=== PATIENT | female | born 1960 | race Caucasian/White ===

== ENCOUNTER 2019-04-22 13:59 | Outpatient (CLI) | payer MEDICARE, MEDICAID, SELFPAY ==
--- NOTE | ~2019-04-22 | MM_ITS ---
EXAMINATION: MM screening cher BI w abran HISTORY: Screening mammogram TECHNIQUE: Craniocaudal and mediolateral oblique 3-D tomosynthesis images were obtained and synthetic 2-D images were generated. CAD analysis was submitted and interpreted. COMPARISON: 04/28/2016 bilateral digital screening mammogram BREAST PARENCHYMAL COMPOSITION: The breasts are heterogeneously dense, which may obscure small masses ....... FINDINGS: There is no evidence of suspicious mass, calcification, or architectural distortion to sugg est malignancy in either breast. There has been no significant interval change. IMPRESSION: 1. No mammographic evidence of malignancy. 2. Recommend routine screening mammography in one year. BI-RADS Category 1: Negative Reviewed, dictated and finalized at location A. RN
== END 2019-04-22 14:00 | disposition home or self-care (01) ==
LOC: CHSIMG 14:03
PROVIDERS: PCP Nurse Practitioner Family; Visit Provider Nurse Practitioner Family
DX: Z12.31 Encounter for screening mammogram for malignant neoplasm of breast (principal)
CPT/HCPCS: 77063; 77067

== ENCOUNTER 2019-05-21 17:23 | Emergency (ER) | payer MEDICARE, MEDICAID, SELFPAY ==
--- NOTE | 2019-05-21 18:09 | ED.FEMALEGU ---
HPI - Female Genitourinary General Chief complaint: Urogenital-Female Stated complaint: trouble urinating/pain while urinating Time Seen by Provider: 05/21/19 17:24 Source: patient Mode of arrival: ambulatory Limitations: no limitations History of Present Illness HPI Narrative: 58-year-old woman comes in today complaining of pain with urination and passing clots in her urine since last evening. She states that she has had no difficulty urinating, abdominal pain, fever, nausea, vomiting or discharge. She states she was recently sexually active. MD elicited complaint: dysuria Onset (ago): day(s) (1) Location of symptoms: urethra Severity: moderate Female Urogenital Radiation: Non-Radiating Quality of pain: sharp and burning Consistency: intermittent Vaginal discharge: none Vaginal bleeding: none Urinary symptoms: Dysuria, Frequency and Hematuria Exacerbating factors: urination Relieving factors: none Treatment prior to arrival: none Sexual activity: Yes Possible : postmenopausal Related Data Home Medications Medication Instructions Recorded Confirmed cetirizine 10 mg PO PRN 05/21/19 05/21/19 diphenoxylate-atropine 1 tablet PO DAILY 05/21/19 05/21/19 hydroxyzine pamoate 25 mg PO PRN 05/21/19 05/21/19 melatonin 3 mg PO HS 05/21/19 05/21/19 mirtazapine 15 mg PO DAILY 05/21/19 05/21/19 sertraline 200 mg PO DAILY 05/21/19 05/21/19 Allergies Allergy/AdvReac Type Severity Reaction Status Date / Time aspirin AdvReac Abdominal Verified 05/21/19 18:10 Pain Review of Systems Constitutional: Constitutional: Denies chills and Denies fatigue Eyes: Eyes: Denies change in vision and Denies photophobia ENT: Denies dysphagia, Denies nasal congestion and Denies sore throat Cardiovascular: Cardiovascular: Denies chest pain and Denies radiating jaw, neck or arm pain Respiratory: Respiratory: Denies cough, Denies dyspnea and Denies wheezing Gastrointestinal: Gastrointestinal: Denies abdominal pain, Denies diarrhea, Denies nausea and Denies vomiting Genitourinary: Genitourinary: Reports hematuria, Reports nocturia, Reports dysuria, Denies flank pain and Denies urinary incontinence Musculoskeletal: Musculoskeletal: Denies back pain, Denies arthralgias and Denies joint swelling Integumentary/Breasts: Skin/Breast: Denies pruritus, Denies erythema and Denies rash Neurologic: Denies vertigo, Denies dizziness and Denies syncope Psychiatric: Psychiatric: Denies anxiety and Denies depression Endocrine: Endocrine: Denies polydipsia and Denies polyuria Hematologic/Lymphatic: Hematologic/Lymphatic: Denies easy bleeding and Denies easy bruising Allergic/Immunologic: Allergic/Immunologic: Denies lip swelling and Denies wheezing PMFSH Past Medical History Medical History (Updated 05/21/19 @ 19:02 by Jimi Desai MD) Chronic back pain Depression IBS (irritable bowel syndrome) Macular degeneration Tobacco dependence syndrome Surgical History Surgical History (Updated 05/21/19 @ 19:00 by Jimi Desai MD) H/O elbow surgery Right H/O foot surgery left Hx of hysterectomy Partial Social History Social History (Updated 05/21/19 @ 19:00 by Jimi Desai MD) Smoking packs per day: 1 Smoking cigarettes per day: 20.0 Years smoked: 40 Smoking pack-years: 40.00 Smoking status: Current every day smoker Tobacco type: cigarettes Alcohol intake: current Substance use: never Exam Const: General: healthy appearing, no acute distress and alert Orientation/consciousness: patient oriented x3 HENMT: Ears: TM's normal bilaterally and EAC's normal Mouth: Yes Normal oral and palatal mucosa present and Yes moist mucous membranes Throat: posterior oropharynx normal and uvula midline Eyes: Conjunctivae: conjunctivae normal Pupils: Equal, round and reactive pupils present EOM: EOMs intact bilaterally Resp: Effort & Inspection: normal respiratory effort and not labored Auscultatio
[2019-05-21 18:14] VITALS: BP 121/70; PULSE 92; RESP 14; TEMP 36.6; O2SAT 99
[2019-05-21 18:34] LABS: Appearance Urine Sl Cloudy (Clear); Bilirubin Urine 1+ (Negative); Blood Urine 3+ (Negative); Color Urine Yellow (Yellow); Glucose Urine UA Negative (Negative); Ketones Urine 1+ (Negative); Leukocyte Esterase Ur 1+ (Negative); Nitrate Urine Positive (Negative); Protein Urine 3+ (Negative); Specific Grav Ur >= 1.030 (1.010-1.020)
[2019-05-21 18:40] LABS: Add Urine Microscopic? NO
[2019-05-21 19:11] VITALS: RESP 12; O2SAT 100
== END 2019-05-21 19:11 | disposition home or self-care (01) ==
PROVIDERS: Emergency Provider Emergency Medicine
DX: N30.01 Acute cystitis with hematuria (principal); F17.200 Nicotine dependence, unspecified, uncomplicated
CPT/HCPCS: 81003; 87491; 87591; 99283; 99284; A9270

== ENCOUNTER 2019-08-20 11:23 | Outpatient (CLI) | payer MEDICARE, SELFPAY ==
[2019-08-20 12:36] LABS: Alanine Aminotransferase 18 U/L (14-59); Albumin Level 3.9 g/dL (3.4-5.0); Alkaline Phosphatase 63 U/L (46-116); Anion Gap 11.3 mmol/L (7-16); Aspartate Amino Transferase 16 U/L (15-37); Bilirubin,Total 0.4 mg/dL (0.00-1.00); Blood Urea Nitrogen 16 mg/dL (7-18); Calcium 9.8 mg/dL (8.5-10.1); Carbon Dioxide 31 mmol/L (21-32); Chloride 105 mmol/L (98-108); Estimated Glomerular Filt Rate > 60; Glucose 89 mg/dL (70-99); Osmolality Calculated 296 mOsm/kg (285-295); Potassium 4.3 mmol/L (3.5-5.1); Sodium 143 mmol/L (136-145); Total Protein 6.7 g/dL (6.4-8.2)
[2019-08-23 04:17] LABS: Hepatitis A Antibody IgM Nonreactive; Hepatitis B Core Antibody Nonreactive (Nonreactive); Hepatitis B Surface Antigen Nonreactive (Nonreactive); Hepatitis C Signal to Cutoff 0.01 ratio (<1.00); Hepatitis C Virus Antibody Nonreactive (Nonreactive)
== END 2019-08-20 11:24 | disposition home or self-care (01) ==
PROVIDERS: PCP Nurse Practitioner Family; Visit Provider Nurse Practitioner Family
DX: R63.6 Underweight (principal); Z00.00 Encounter for general adult medical examination without abnormal findings
CPT/HCPCS: 36415; 80053; 80074

== ENCOUNTER 2020-04-29 14:36 | Outpatient (CLI) | payer MEDICARE, MEDICAID, SELFPAY ==
--- NOTE | ~2020-04-29 | MM_ITS ---
EXAMINATION: MM screening cher BI w abran HISTORY: Screening TECHNIQUE: Craniocaudal and mediolateral oblique 3-D tomosynthesis images were obtained and synthetic 2-D images were generated. CAD analysis was submitted and interpreted. COMPARISON: Comparison to multiple prior studies sequentially, with oldest reviewed study dated 04/28. BREAST PARENCHYMAL COMPOSITION: The breasts are extremely dense, which lowers the sensitivity of mamm ography. FINDINGS: There is no evidence of suspicious mass, calcification, or architectural distortion to sugg est malignancy in either breast. There has been no suspicious interval change. IMPRESSION: 1. No mammographic evidence of malignancy. 2. Recommend routine screening mammography in one year. BI-RADS Category 1: Negative Reviewed, dictated and finalized at location A. ENERGY MECHANIC
== END 2020-04-29 14:37 | disposition home or self-care (01) ==
PROVIDERS: PCP Family Medicine; Visit Provider Family Medicine
DX: Z12.31 Encounter for screening mammogram for malignant neoplasm of breast (principal)
CPT/HCPCS: 77063; 77067

== ENCOUNTER 2020-12-22 15:36 | Outpatient (CLI) | payer MEDICARE, MEDICAID, SELFPAY ==
--- NOTE | 2020-12-22 15:39 | ECG_ITS ---
Measurements Intervals [place] Rate: 67 P: 72 NC: 145 QRS: 24 QRSD: 107 T: 70 QT: 371 QTc: 394 Interpretive Statements SINUS RHYTHM WITH SINUS ARRHYTHMIA INCOMPLETE RIGHT BUNDLE BRANCH BLOC DELAYED PRECORDIAL R/S TRANSITION BORDERLINE ECGK Electronically Signed On 12-22-2020 16:06:55 CDT by Diego Farooq D.O.
== END 2020-12-22 15:37 | disposition home or self-care (01) ==
PROVIDERS: PCP Nurse Practitioner Family; Visit Provider Nurse Practitioner Family
DX: R07.9 Chest pain, unspecified (principal)
CPT/HCPCS: 93005

== ENCOUNTER 2021-08-27 15:13 | Outpatient (CLI) | payer MEDICARE, MEDICAID, SELFPAY ==
--- NOTE | ~2021-08-27 | XR_ITS ---
EXAM: XR foot LT 2V, XR ankle LT 2V DATE: 08/27/2021 15:51 HISTORY: pain @ anterior/lateral portion of foot/ankle . COMPARISON: None available. FINDINGS: Decreased mineralization. No fracture or dislocation. No lytic or blastic lesion. Joint sp aces are maintained. No erosion or periosteal change. Ankle joint effusion. IMPRESSION: No acute osseous finding in the left foot or ankle. Osteopenia. Reviewed, dictated and finalized at location K. IMPRESSION: No acute osseous finding in the left foot or ankle. Osteopenia.
== END 2021-08-27 15:14 | disposition home or self-care (01) ==
LOC: CHSIMG 15:16
PROVIDERS: PCP Family Medicine; Visit Provider Nurse Practitioner Family
DX: M79.672 Pain in left foot (principal)
CPT/HCPCS: 73600; 73620

== ENCOUNTER 2022-05-17 10:00 | Outpatient (CLI) | payer MEDICARE, SELFPAY ==
[2022-05-17 10:27] LABS: Appearance Urine Clear (Clear); Bilirubin Urine Negative (Negative); Blood Urine 1+ (Negative); Color Urine Light Yellow (Yellow); Glucose Urine UA Negative (Negative); Ketones Urine Negative (Negative); Leukocyte Esterase Ur Negative LEU/UL (Negative); Nitrate Urine Negative (Negative); Protein Urine Negative (Negative); Urobilinogen Urine 0.2 mg/dL (0.2-1.0)
[2022-05-17 10:33] LABS: Add Urine Microscopic? YES; Bacteria Urine Trace /hpf; Squamous Epithelial Cell Urine Rare /hpf (Few); WBC Urine None seen /hpf (0-3)
== END 2022-05-17 10:01 | disposition home or self-care (01) ==
PROVIDERS: PCP Family Medicine; Visit Provider Family Medicine
DX: R35.0 Frequency of micturition (principal)
CPT/HCPCS: 81001

== ENCOUNTER 2024-01-04 07:10 | Outpatient (CLI) | payer MEDICARE, MEDICAID, SELFPAY ==
--- NOTE | ~2024-01-04 | CT_ITS ---
EXAMINATION: CT abdomen pelvis wo/w con DATE: 01/04/2024 09:06 INDICATION: Right flank pain. TECHNIQUE: Computed tomography (CT) of the abdomen and pelvis was performed without and with intraven ous contrast using a total of 130 mL Omnipaque-350 intravenous contrast with a double-bolus technique for simultaneous opacification of the renal parenchyma and renal collecting system. Automated exposu re control and iterative reconstruction technique were employed. The dose-length product was 377.64 m Gy-cm. COMPARISON: None FINDINGS: The visualized portions of the lung bases demonstrate mild emphysema. There is a 5 mm nodule in left lower lobe, likely benign. There is a 4 mm nodule in right lower lobe, likely benign. No pleural effu anna. The heart size is normal. No pericardial effusion. The liver and gallbladder are normal. Calcif ications in the spleen are consistent with old granulomatous disease. The pancreas and adrenal glands are normal. There are cysts in the kidneys measuring up to 2.3 cm on the left. There is no urolithia sis. The ureters are well opacified and are normal. The bladder is normal. There are no dilated loops of bowel. There are no pathologically enlarged lymph nodes. There is no free intraperitoneal fluid. There is mild lumbar spondylosis. IMPRESSION: 1. No etiology for the patient's symptoms. Reviewed, dictated and finalized at location A.
[2024-01-04 07:39] LABS: Estimated Glomerular Filt Rate > 60
== END 2024-01-04 07:11 | disposition home or self-care (01) ==
LOC: CHSIMG 07:14
PROVIDERS: PCP Family Medicine; Visit Provider Nurse Practitioner
DX: Z98.890 Other specified postprocedural states (principal)
CPT/HCPCS: 74178; Q9967

== ENCOUNTER 2024-03-07 16:23 | Emergency (ER) | payer MEDICARE, MEDICAID, SELFPAY ==
[2024-03-07 16:26] VITALS: BP 97/78; PULSE 85; RESP 18; TEMP 36.5; O2SAT 98
--- NOTE | 2024-03-07 16:41 | ED.UPPEXIN ---
HPI - Extremity Injury (Upper) General Chief Complaint: Extremity Injury, Upper Stated Complaint: wrist pain Time Seen by Provider: 03/07/24 16:34 Source: patient Mode of arrival: ambulatory Limitations: no limitations History of Present Illness HPI narrative: patient is 63-year-old female who presents with a contusion the medial aspect of her left wrist has good range of motion with some mild radiation into her fingers good brisk radial pulse on the left with some mild bruising and swelling. After she hit her wrist on the side of a trash can. complaint: injury to: left Onset (ago): hour(s) Other Extremity Injury: Left: wrist ( contusion) Other injuries: none Handedness: right Severity: mild Related Data Allergies Allergy/AdvReac Type Severity Reaction Status Date / Time estrogens, conjugated (From Allergy Severe swelling Verified 03/07/24 16:28 Premarin) aspirin Allergy Intermediate Unknown Verified 03/07/24 16:28 soap Allergy Mild unknown Verified 03/07/24 16:28 Review of Systems Review of Systems: All systems reviewed & are unremarkable except as noted in HPI and below PMFSH Past Medical History Medical History Left foot pain Osteoarthritis Ingrown fingernail Chest pain Mouth pain Tooth abscess H/O uterine prolapse Bladder prolapse Herpes genitalis Patient underweight Yeast infection Macular degeneration IBS (irritable bowel syndrome) Depression Chronic back pain Tobacco dependence syndrome Macular degeneration Tobacco dependence Depression Chronic back pain IBS (irritable bowel syndrome) Surgical History Surgical History History of lumpectomy of right breast H/O foot surgery left H/O elbow surgery Right Hx of hysterectomy Partial Hx of hysterectomy Partial Family History Family History Mother Hypertension Diabetes mellitus Osteoporosis Overactive bladder Alzheimer disease Other Family history of coronary artery disease Family history of malignant neoplasm Family history of type 2 diabetes mellitus Social History Social History Smoking packs per day: 1 Smoking cigarettes per day: 20.0 Years smoked: 40 Smoking pack-years: 40.00 Smoking status: Current every day smoker Tobacco type: cigarettes (Currently down to 6 per day. She is trying to quit) Alcohol intake: current Substance use: never Substance use type: does not use Living arrangements: alone Additional living arrangements comments: Lives in public housing Gender identity (if verbalized by the patient): Female Sexual Orientation (if Verbalized by the Patient): Straight or Heterosexual Spiritual care concerns: No Exam Const: General: healthy appearing Nutritional Appearance: well nourished Orientation/consciousness: patient oriented x3 Limitations: no limitations HENMT: Head: normal to inspection Eyes: Pupils: Equal, round and reactive pupils present Neck: Neck: normal visual inspection Chest: Chest palpation & inspection: normal inspection of the chest Resp: Effort & Inspection: normal respiratory effort Auscultation: clear to auscultation bilaterally Skin: Wounds: wounds noted Neuro: General: patient oriented x3, moves all extremities, no meningeal signs and no focal motor deficits Course Course Emergency Course: Patient received a dose of p.o. Tylenol 650mg ice was applied to affected area an Gurpreet wrap applied. Vital Signs Vital signs: Vital Signs Temperature 36.5 C 03/07/24 16:26 Pulse Rate 85 03/07/24 16:26 Respiratory Rate 18 03/07/24 16:26 Blood Pressure 97/78 L 03/07/24 16:26 Pulse Oximetry 98 03/07/24 16:26 Oxygen Delivery Room Air 03/07/24 16:26 Temperature 36.5 C 03/07/24 16:26 Pulse Rate 85 03/07/24 16:26 Respiratory Rate 18 03/07/24 16:26 Blood Pressure 97/78 L 03/07/24 16:26 Pulse Oximetry 98 03/07/24 16:26 Oxygen Delivery Room Air 03/07/24 16:26 Critical Care Time Critical Care Time Critical Care Time: No Discharge Plan Discharge Clinical Impression: Contusion Qualifiers: Encounter type: initial encounter Contusion area: wrist Laterality: left Qualified Code(s): S60.212A - Contusion of left wrist, initial encounter Patient Disposition: Home, Self-Care Condition: Stable Instructions: Antibiotic Form, Contusion in Adults (ED) Additional Instructions: advised to continue Gurpreet wrap can continue ice to affected area take Tylenol as needed follow-up primary if symptoms persist or worsen. Patient Language: Scottish Prescriptions: No Action oxycodone 5 mg tablet 5 mg PO Q8H PRN (Reason: pain) Qty: 20 0RF triamcinolone acetonide 0.5 % ointment 1 applic topical BID Qty: 15 0RF alendronate 35 mg tablet 35 mg PO WEEKLY Qty: 12 3RF Rx Instructions: 1 tablet once a week omeprazole 10 mg capsule,delayed release(/EC) See Rx Instructions .ROUTE .COMPLEX Qty: 90 1RF Dose Instruction: TAKE 1 CAPSULE BY MOUTH EVERY DAY Rx Instructions: TAKE 1 CAPSULE BY MOUTH EVERY DAY naproxen 250 mg tablet See Rx Instructions .ROUTE .COMPLEX Qty: 60 2RF Dose Instruction: TAKE 1 TABLET BY MOUTH TWICE A DAY NEEDED FOR PAIN Rx Instructions: TAKE 1 TABLET BY MOUTH TWICE A DAY NEEDED FOR PAIN Magic Mouthwash (Dr. Villareal) 120 mL suspension 5 ml PO Q4-6H PRN (Reason: mouth pain) Qty: 120 12RF Myrbetriq 50 mg tablet extended release 24 hr 50 mg PO DAILY Qty: 90 0RF Follow-up/Referrals: UNKNOWN,DOCTOR [Primary Care Provider] -
[2024-03-07] MEDS: ACETAMINOPHEN 325 MG TABLET 650 MG PO (16:45)
[2024-03-07 16:52] VITALS: BP 105/82; PULSE 85; RESP 18; TEMP 36.5; O2SAT 98
== END 2024-03-07 16:54 | disposition home or self-care (01) ==
LOC: CHSED 16:52
PROVIDERS: Emergency Provider Emergency Medicine; PCP Family Medicine
DX: S60.212A Contusion of left wrist, initial encounter (principal); W22.8XXA Striking against or struck by other objects, initial encounter; F17.210 Nicotine dependence, cigarettes, uncomplicated
CPT/HCPCS: 99282; A9270

== ENCOUNTER 2024-03-22 10:51 | Outpatient (CLI) | payer MEDICARE, SELFPAY ==
[2024-03-22 11:11] LABS: Basophils Absolute Auto 0.04 K/mm3 (0.00-0.10); Basophils Percent Auto 0.8 % (0.0-1.0); Hematocrit 42.4 % (35.0-42.0); Hemoglobin 13.7 g/dL (11.7-13.8); Immature Granulocyte Absolute 0.01 K/mm3 (0.00-0.00); Immature Granulocyte Percent A 0.2 % (0.0-0.0); Lymphocytes Absolute Auto 1.35 K/mm3 (1.10-4.50); Mean Corpuscular HGB Conc 32.3 g/dL (32-36); Mean Corpuscular Hemoglobin 28.8 pg (27.0-31.0); Mean Corpuscular Volume 89.1 fL (78.0-102.0); Mean Platelet Volume 9.9 fl (9.2-11.8); Monocytes Absolute Auto 0.44 K/mm3 (0.10-0.90); Monocytes Percent Auto 8.8 % (2.0-11.0); Neutrophils Absolute Auto 2.76 K/mm3 (1.70-7.20); Neutrophils Percent Auto 55.2 % (50.0-70.0); Platelet Count Result 376 K/mm3 (150-420); Red Blood Count 4.76 M/mm3 (4.20-5.40); Red Cell Distribution Width 13.2 % (11.6-14.4)
[2024-03-22 12:04] LABS: Alanine Aminotransferase 25 U/L (14-59); Albumin Level 4.1 g/dL (3.4-5.0); Alkaline Phosphatase 63 U/L (46-116); Anion Gap 4 mmol/L (4-12); Aspartate Amino Transferase 17 U/L (15-37); Bilirubin,Total 0.4 mg/dL (0.00-1.00); Blood Urea Nitrogen 15 mg/dL (7-18); Calcium 10.4 mg/dL (8.5-10.1); Carbon Dioxide 33 mmol/L (21-32); Chloride 105 mmol/L (98-108); Estimated Glomerular Filt Rate > 60; Ferritin 138 ng/mL (8-252); Glucose 95 mg/dL (70-99); Iron 89 ug/dL (50-170); Osmolality Calculated 294 mOsm/kg (285-295); Percent Iron Saturation 29 % (12-57); Potassium 4.7 mmol/L (3.5-5.1); Sodium 142 mmol/L (136-145); Total Protein 6.6 g/dL (6.4-8.2); Vitamin B12 570 pg/mL (193-986)
[2024-03-22 12:14] LABS: Folic Acid > 20.0 ng/mL (8.6->20)
[2024-03-22 12:51] LABS: Thyroid Stimulating Hormone Reflex 0.71 u/IU/mL (0.36-3.74)
== END 2024-03-22 10:52 | disposition home or self-care (01) ==
PROVIDERS: PCP Family Medicine; Visit Provider Family Medicine
DX: R63.6 Underweight (principal); D50.9 Iron deficiency anemia, unspecified; E53.8 Deficiency of other specified B group vitamins; D64.9 Anemia, unspecified; E03.9 Hypothyroidism, unspecified
CPT/HCPCS: 36415; 80053; 82607; 82728; 82746; 83540; 83550; 84443; 85025

== ENCOUNTER 2024-10-30 16:57 | Outpatient (NON) | payer MEDICARE, SELFPAY ==
--- OUTSIDE RECORDS SUMMARY | 2024-10-30 17:00 | XMS_ITS | Clinical Summary ---
Author Organization [facility] Address [address] [place] [address] Phone Care Team Providers Care Client Relation Specialist Name Role Phone Zaki Dawn MD Primary Care Provider [phone] Alphonso Damon APRN, TOP ICER Unavailable [phone] Fede Murray MD Unavailable Allergies Active Allergy Reactions Criticality Noted Date Comments Aspirin Other (see Comments) 11/20/2023 Medications Multiple Vitamins-Minera ls (PRESERVISION AREDS 2 PO) Take by mouth. Act ryan ipratropium (ATROVENT) 0.06 % Solution 2 SPRAY INTRANASALLY THREE TIMES A DAY ADMINISTER INTO EACH NOSTRIL 5 Active omeprazole (PriLOSEC) 40 MG CAPSULE DELAYED RELEASE Take 40 mg by mouth daily. 5 Active Mirabegron ER (Myrbetriq) 50 MG TABLET SR 24 HRIndications:O AB (overactive bladder) Take 50 mg by mouth daily. 90 Tablet 3 5 Active Immunizations Immunization Administration Dates Next Due Covid-19, Mrna, Lnp-s, Pf, 30 Mcg/0.3 Ml Dose (P fizer) 11/18/2020,10/23/2020 Social History Tobacco Use Types Packs/Day Years Used Date Smoking Tobacco: Every Day Cigarettes Smokeless Tobacco: Never Tobacco Cessation:Ready to Q uit: Not Asked; Counseling Given: Not Answered Alcohol Use Standard Drinks/Week Comments Not Currently 0 (1 standard drink = 0.6 oz pur e alcohol) Sexually Active Control Partners Comments Not Currently Comments No Sex and Gender Information Value Date Recorded Sex Assigned at Not on file Legal Sex Female 3:05 PM CDT Gender Identity Not on file Sexual Orientation Not on file Last Filed Vital Signs Vital Sign Reading Time Taken Comments Blood Pressure 97/53 06/10/2024 1:41 PM CDT Pulse 78 06/10/2024 1:41 PM CDT Temperature - - Respiratory Rate 20 06/10/2024 1:41 PM CDT Oxygen Saturation 97% 06/10/2024 1:41 PM CDT Inhaled Oxygen Concentration - - Weight 43.1 kg (95 lb) 06/10/2024 1:41 PM CDT Height 147.3 cm (4' 10) 06/10/2024 1:41 PM CDT Body Mass Index 19.86 06/10/2024 1:41 PM CDT Plan of Treatment Upcoming Encounters Date Type Department Care Team (Late st Contact Info) Description 06/10/2025 2:00 PM CDT Office Visit [facility] [address] [place] [address] Alphonso Damon, AUTOMOTIVE TIRE TESTING SUPERVISOR, TOP ICER [address] [place] [address] Health Maintenance Due Date Last Done Comments DEXA Bone Density 1960 Hepatitis C Virus (HCV) Screening 1960 Mammogram 1960 TdaP Immunization 1960 Pneumococcal Immunization (5 0+ years) (1 of 2 - PCV) 1977 Cologuard 06/30/2003 Colonoscopy 06/30/2003 Colorectal Cancer Screening 06/30/2003 Immunochemical Fecal Occult Blood 06/30/2003 Zoster Immunization (1 of 2) 2008 SARS-COV-2 Immunization ( - season) 2023 11/18/2020, 10/23/2020 Influenza Immunization (#1) 2024 Respiratory Syncytial Virus (RSV) Immunization (Adult) (1 - 1-dose 75+ series) 2033 Hepatitis B Immunization Aged Out No longer eligible based on patient's age to complete this topic Human Papillomavirus (HPV) Immunization Aged Out No longer eligible b ased on patient's age to complete this topic Meningococcal Immunization (ACWY) Aged Out No longer eligible b ased on patient's age to complete this topic Rotavirus Immunization Aged Out No lo nger eligible based on patient's age to complete this topic Insurance MEDICAID [place] MEDICARE C UNITEDHE[employer]ARE Care Teams Client Relation Specialist Relationship Specialty Start Date End Date Zaki Dawn MD [address] [place] [address] PCP - General Family Medicine 10/16/23 Alphonso Damon APRN, TOP ICER [address] [place] [address] Nurse Practitioner Advanced Practice Nurse 11/20/23 Fede Murray MD [address] [phone] Consulting Physician Urology 03/29/24
== END 2024-10-30 16:58 | disposition home or self-care (01) ==
LOC: CHSLAB 16:58
PROVIDERS: PCP Family Medicine; Visit Provider Nurse Practitioner Family
DX: R21 Rash and other nonspecific skin eruption (principal)
CPT/HCPCS: 87070; 87075; 87205

== ENCOUNTER 2024-12-20 11:33 | Outpatient (CLI) | payer MEDICARE, MEDICAID, SELFPAY ==
--- NOTE | ~2024-12-20 | XR_ITS ---
EXAMINATION: XR shoulder RT min 2V DATE: 12/20/2024 11:53 INDICATION: Fall. Right shoulder pain. TECHNIQUE: 5 images of the right shoulder were obtained. COMPARISON: None FINDINGS: Mild degenerative change in the right acromioclavicular joint. Bones appear osteopenic. Questionable anterior subluxation/dislocation of the right humeral head relative to the right glenohumeral joint. Consider an axillary view for further assessment. [ No radiographic evidence for an acute fracture.] [ No radiopaque foreign body.] [ No sclerotic bone lesions.] Soft tissue swelling about the right shoulder. IMPRESSION: 1. No fracture identified. 2. Questionable anterior subluxation/dislocation of the right humeral head relative to the right glenohumeral joint. Consider an axillary view for further assessment. If symptoms persist or worsen consider a short-term follow-up study or additional imaging for further assessment. Reviewed, dictated and finalized at location Q. IMPRESSION: 1. No fracture identified. 2. Questionable anterior subluxation/dislocation of the right humeral head rela tive to the right glenohumeral joint. Consider an axillary view for further ass essment. If symptoms persist or worsen consider a short-term follow-up study or addition al imaging for further assessment.
== END 2024-12-20 11:34 | disposition home or self-care (01) ==
PROVIDERS: PCP Family Medicine; Visit Provider Family Medicine
DX: S49.91XA Unspecified injury of right shoulder and upper arm, initial encounter (principal)
CPT/HCPCS: 73030

== ENCOUNTER 2024-12-23 11:47 | Outpatient (CLI) | payer MEDICARE, MEDICAID, SELFPAY ==
--- OUTSIDE RECORDS SUMMARY | 2024-04-18 08:00 | XMS_ITS ---
Author Organization [facility] Address [address] [place], [place] [id number] Care Team Providers Care Sewing Trimmer Name Role Phone KATIUSKA SIERRA Unavailable [phone] Zaki Dawn Unavailable Unavailable SOCORRO PARMAR Unavailable [phone] Allergies Allergen (clinical drug ingredient) Drug/Non Drug Allergy documented on EMR Reaction Allergy Type Onset Date Status aspirin Aspirin Unknown Drug Allergy Active REASON FOR VISIT When the patient was very young (2nd or 3rd grade) she stepped on a wood foreign body and over timeit became infected. She recently has been developing hard skin on the bottom of the heel that hurtsto walk on., The patient has painful calluses that are causing difficulty with ambulation and shoegear. The onset is gradual Encounters Encounter Location Date Provider Diagnosis [address] [id number] 04/18/2024 SOCORRO PARMAR Acquired keratosis [keratoderma] palmaris et plantaris L85.1 ; Atherosclerosis of [place] arteries of extremities with intermittent claudication, bilateral legs I70.213 ; Pain in left foot M79.672 and Other eccrine sweat disorders L74.8 Assessments Encounter Date Diagnosis (ICD Code) Assessment Notes Treatment Notes Treatment Clinical Notes Section Notes 04/18/2024 Acquired keratosis [keratoderma] palmaris et plantaris (ICD-10 - L85.1) A total of 3 corns or calluses to the left heel, as described in the note above, were cut and pared utilizing a #15 blade. Emollient: Recommend that the patient use an emollient such as [id number] Eucerin cream, Vanicream, or other lotion to the affected area. 04/18/2024 Atherosclerosis of [place] arteries of extremities with intermittent claudication, bilateral legs (ICD-10 - I70.213) 04/18/2024 Pain in left foot (ICD-10 - M79.672) 04/18/2024 Other eccrine sweat disorders (ICD-10 - L74.8) Porokeratosis Resolved: The nonviable tissue was sharply debrided down to normal healthy appearing skin. No evidence of porokeratosis noted. Patient advised to monitor this area, as well as to use emollients and keep pressure off this area with padding, inserts, or orthotics. 04/18/2024 Other Plan Of Treatment Treatment Notes Assessment Notes Acquired keratosis [keratode rma] palmaris et plantaris A total of 3 corns or calluses to the left heel, as described in the note above, were cut and pared utilizing a #15 blade. Emollient: Recommend that the patient use an emollient such as [id number]-hudueje Eucerin cream, Vanicream, or other lotion to the affected area. Other eccrine sweat disorders Porokeratosis Resolved: The nonviable tissue was sharply debrided down to normal healthy appearing skin. No evidence of porokeratosis noted. Patient advised to monitor this area, as well as to use emollients and keep pressure off this area with padding, inserts, or orthotics. Next Appt Details Follow Up: 10 - 12 weeks, Re ason: At-Risk Foot care, sooner if problems develop. Progress Notes * Crystal GARCIA SDOB:1960 (64 yo F)Acc No.[id number]:04/18/2024 Progress Notes Patient: Crystal HUANG S Provider: Brennen Parmar DPM :1960 A ge:63 Y S ex:Female Date:04/18/2024 Address:[address] [place], [place] [id number] Subjective: * Chief Complaints: * 1 . When the patient was very young (2nd or 3rd grade) she stepped on a wood foreign body and over time it became infected. She recently has been developing hard skin on the bottom of the heel that hurts to walk on.. 2. The patient has painful calluses that are causing difficulty with ambulation and shoegear. The onset is gradual. * HPI: H PI: New Complaint P maribel presents for a new patient consultation., Patient complains of an issue to a possible porokeratosis spot on the left heel. Patient states that she thinks it is a knot. Duration of problem is 2 years. , MA: [facility]. * ROS: G eneral / Constitutional: Patient denies c hills, fever, weight loss. ? M usculoskeletal: Patient denies w eakness, broken foot bone. ? S kin: Patient complains of c alluses and corns. N eurologic: Patient denies b alance difficulty, confusion, difficulty speaking, dizziness. * Medical History: B ladder infections. * Social History: S moking . * Medications: N one * Allergies: A spirin: Allergy. Objective: * Vitals: * Examination: P hysical Examination: General appearance: A lert, pleasant, well-nourished and in no acute distress. D ermatologic: Skin findings: S kin is thin, atrophic and lacking pedal hair. Hypertrophic / hyperkeratotic lesion: h yperkeratotic skin to the plantar aspect of the left heel with nucleated cores. Post debridement, relief was noted. V ascular: Dorsalis pedis pulse: 1 /4 b ilateral. Posterior tibial pulse: 0 /4 bilateral. Capillary refill: g reater than 3 seconds. Edema: N o edema bilateral. N eurologic: Gross sensation G rossly intact to light touch. There is negative Tinel's sign. M usculoskeletal: Muscle Strength M uscle strength is 5/5 in regards to dorsiflexion, plantarflexion, inversion, and eversion in bilateral lower extremities. ? Assessment: * Assessment: 1. A cquired keratosis [keratoderma] palmaris et plantaris - L85.1 (Primary) 2 . A therosclerosis of [place] arteries of extremities with intermittent claudication, bilateral legs - I70.213 3 . P ain in left foot - M79.672 4 . O ther eccrine sweat disorders - L74.8 Plan: * Treatment: 2. O ther eccrine sweat disorders Notes: Porokeratosis Resolved: The nonviable tissue was sharply debrided down to normal healthy appearing skin. No evidence of porokeratosis noted. Patient advised to monitor this area, as well as to use emollients and keep pressure off this area with padding, inserts, or orthotics. * Follow Up: 1 0 - 12 weeks (Reason: At-Risk Foot care, sooner if problems develop.) * Billing Information: * Visit Code: 39508 Office Visit, New Pt., Level 3. * Procedure Codes: * Electronic signature of SOCORRO PARMAR DPM on 12/23/2024 at 01:04 PM CDT Sign off status: Pending * Provider: Brennen Parmar DPM Date: 0 04/18/2024 Generated for Dung fall/Kajal/Teodoro on: 1 01:04 PM CDT History and Physical Notes * HPI (History of Present Illness) Category Sub-Category Detail Notes Category Not es HPI New Complaint Patient presents for a new patient consultation., Patient complains of an issue to a possible porokeratosis spot on the left heel. Patient states that she thinks it is a knot. Duration of problem is 2 years. , MA: [facility] Examination Category Sub-Category Detail Notes Category Not es Dermatologic Skin findings: Skin is thin, at rophic and lacking pedal hair Hypertrophic / hyperkeratotic lesion: hy perkeratotic skin to the plantar aspect of the left heel with nucleated cores. Post debridement, relief was noted Neurologic Gross sensation Grossly intact t o light touch. There is negative Tinel's sign Vascular Dorsalis pedis pulse: 1/4 bilateral Edema: No edema bilateral Capillary refill: greater than 3 secon ds Posterior tibial pulse: 0/4 bilateral Physical Examination General appearance: Alert, pleasant, well-nourished and in no acute distress Musculoskeletal Muscle Strength Muscle strength is 5/5 in regards to dorsiflexion, plantarflexion, inversion, and eversion in bilateral lower extremities
--- OUTSIDE RECORDS SUMMARY | 2024-07-11 08:20 | XMS_ITS ---
Author Organization [facility] Address [address] [place], [place] [address] Care Team Providers Care Solar Installation Technician Name Role Phone KATIUSKA SIERRA Unavailable [phone] Zaki Dawn Unavailable Unavailable SOCORRO DE LA GARZA Unavailable [phone] Allergies Allergen (clinical drug ingredient) Drug/Non Drug Allergy documented on EMR Reaction Allergy Type Onset Date Status aspirin Aspirin Unknown Drug Allergy Active REASON FOR VISIT Patient presents for at-risk foot care . The patient has painful toenails and calluses that are causing difficulty with ambulation and shoegear. The onset is gradual Encounters Encounter Location Date Provider Diagnosis [address] [id number] 07/11/2024 SOCORRO DE LA GARZA Tinea unguium B35.1 ; Acquired keratosis [keratoderma] palmaris et plantaris L85.1 ; Atherosclerosis of [place] arteries of extremities with intermittent claudication, bilateral legs I70.213 ; Pain in right foot M79.671 and Pain in left foot M79.672 Assessments Encounter Date Diagnosis (ICD Code) Assessment Notes Treatment Notes Treatment Clinical Notes Section Notes 07/11/2024 Tinea unguium (ICD-10 - B35.1) Nails 1-5 Bilateral were debrided extensively with nail nippers and emery board, reducing length and girth to pink healthy tissue with any subungual debris and necrotic tissue removed 07/11/2024 Acquired keratosis [keratoderma] palmaris et plantaris (ICD-10 - L85.1) A total of 1 corns or calluses, as described in the note above, were cut and pared utilizing a #15 blade 07/11/2024 Atherosclerosis of [place] arteries of extremities with intermittent claudication, bilateral legs (ICD-10 - I70.213) 07/11/2024 Pain in right foot (ICD-10 - M79.671) 07/11/2024 Pain in left foot (ICD-10 - M79.672) Plan Of Treatment Treatment Notes Assessment Notes Tinea unguium Nails 1-5 Bilateral were debrided extensively with nail nippers and emery board, reducing length and girth to pink healthy tissue with any subungual debris and necrotic tissue removed Acquired keratosis [keratode rma] palmaris et plantaris A total of 1 corns or calluses, as described in the note above, were cut and pared utilizing a #15 blade Next Appt Details Follow Up: 10 - 12 weeks, Re ason: At-Risk Foot care, sooner if problems develop. Progress Notes * ANDRZEJHermesCrystal SDOB:1960 (64 yo F)Acc No.[id number]:07/11/2024 Patient: Crystal HUANG Provider: Brennen De La Garza DPM :1960 A ge:64 Y S ex:Female Date:07/11/2024 Address:[address] [place], [place] [id number] Subjective: * Chief Complaints: * 1 . Patient presents for at-risk foot care . The patient has painful toenails and calluses that are causing difficulty with ambulation and shoegear. The onset is gradual. * HPI: H PI: New Complaint E stablished patient presents with a new complaint. Patient complains of an issue to a few nails that she was unable to cut. Patient states a few of her nails are growing into the sides of her skin. Patient denies any pain. Patient states she has been applying cream that the doctor recommended, but she is unsure if it is making any difference. RYDER LB. * ROS: G eneral / Constitutional: Patient denies c hills, fever, weight loss. ? M usculoskeletal: Patient denies w eakness, broken foot bone. ? S kin: Patient complains of c alluses and corns. N eurologic: Patient denies b alance difficulty, confusion, difficulty speaking, dizziness. * Medical History: B ladder infections. * Family History: N o Family History documented.. * Social History: S moking . * Medications: N one * Allergies: A spirin: Allergy. Objective: * Vitals: * Examination: P hysical Examination: General appearance: A lert, pleasant, well-nourished and in no acute distress. D ermatologic: Skin findings: S kin is thin, atrophic and lacking pedal hair. Hypertrophic / hyperkeratotic lesion: p lantar aspect left heel. Nail pathology: N ails 1, 2, 3, 4, and 5 bilateral are elongated, thick, discolored, and dystrophic with subungual debris. They are painful to palpation. ? V ascular: Dorsalis pedis pulse: 1 /4 [...] lower extremities. ? Assessment: * Assessment: 1. T inea unguium - B35.1 (Primary) 2 . A cquired keratosis [keratoderma] palmaris et plantaris - L85.1 3 . A therosclerosis of [place] arteries of extremities with intermittent claudication, bilateral legs - I70.213 4 . P ain in right foot - M79.671 5 . P ain in left foot - M79.672 Plan: * Treatment: 2. A cquired keratosis [keratoderma] palmaris et plantaris Notes: A total of 1 corns or calluses, as described in the note above, were cut and pared utilizing a #15 blade * Immunizations: Immunization record has been reviewed and updated. * Preventive Medicine: Screenings: F all risk screening F all Risk Assessment: N o falls in the past year. * Follow Up: 1 0 - 12 weeks (Reason: At-Risk Foot care, sooner if problems develop.) * Billing Information: * Visit Code: 27502 Office Visit, Est Pt., Level 3. * Procedure Codes: * Electronic signature of SOCORRO DE LA GARZA DPM on 12/23/2024 at 01:05 PM CDT Sign off status: Pending * Provider: Brennen De La Garza DPM Date: 0 07/11/2024 Generated for Dung fall/Kajal/Teodoro on: 1 01:05 PM CDT History and Physical Notes * HPI (History of Present Illness) Category Sub-Category Detail Notes Category Not es HPI New Complaint Established camelia ent presents with a new complaint. Patient complains of an issue to a few nails that she was unable to cut. Patient states a few of her nails are growing into the sides of her skin. Patient denies any pain. Patient states she has been applying cream that the doctor recommended, but she is unsure if it is making any difference. MA LB Examination Category Sub-Category Detail Notes Category Not es Dermatologic Skin findings: Skin is thin, at rophic and lacking pedal hair Nail pathology: Nails 1, 2, 3, 4, an d 5 bilateral are elongated, thick, discolored, and dystrophic with subungual debris. They are painful to palpation Hypertrophic / hyperkeratotic lesion: pl adrienne aspect left heel Neurologic Gross sensation Grossly intact t o [...]
--- OUTSIDE RECORDS SUMMARY | 2024-09-12 08:50 | XMS_ITS ---
Author Organization [facility] Address [address] [place], [place] [address] Care Team Providers Care Pets Salesperson Name Role Phone RIGO KATIUSKA Unavailable [phone] Zaki Dawn Unavailable Unavailable REASON FOR VISIT *General care Encounters Encounter Location Date Provider Diagnosis [facility] [address] [place], [place] [id number] 09/12/2024 KATIUSKA SIERRA Tinea unguium B35.1 ; Acquired keratosis [keratoderma] palmaris et plantaris L85.1 ; Atherosclerosis of [place] arteries of extremities with intermittent claudication, bilateral legs I70.213 ; Pain in right foot M79.671 and Pain in left foot M79.672 Assessments Encounter Date Diagnosis (ICD Code) Assessment Notes Treatment Notes Treatment Clinical Notes Section Notes 09/12/2024 Tinea unguium (ICD-10 - B35.1) Nails 1-5 Bilateral were debrided extensively with nail nippers and emery board, reducing length and girth to pink healthy tissue with any subungual debris and necrotic tissue removed 09/12/2024 Acquired keratosis [keratoderma] palmaris et plantaris (ICD-10 - L85.1) A total of 2 corns or calluses, as described in the note above, were cut and pared utilizing a #15 blade 09/12/2024 Atherosclerosis of [place] arteries of extremities with intermittent claudication, bilateral legs (ICD-10 - I70.213) Patient educated on risks and aggravating factors of PVD, including conservative treatment options such as a diet and exercise regimen to aid in slowing progression of vascular disease. Check and protect LE bilateral daily. Call if any changes or concerns. 09/12/2024 Pain in right foot (ICD-10 - M79.671) 09/12/2024 Pain in left foot (ICD-10 - M79.672) Plan Of Treatment Treatment Notes Assessment Notes Tinea unguium Nails 1-5 Bilateral were debrided extensively with nail nippers and emery board, reducing length and girth to pink healthy tissue with any subungual debris and necrotic tissue removed Acquired keratosis [keratode rma] palmaris et plantaris A total of 2 corns or calluses, as described in the note above, were cut and pared utilizing a #15 blade Atherosclerosis of [place] ar teries of extremities with intermittent claudication, bilateral legs Patient educated on risks and aggravatin g factors of PVD, including conservative treatment options such as a diet and exercise regimen to aid in slowing progression of vascular disease. Check and protect LE bilateral daily. Call if any changes or concerns. Next Appt Details Follow Up: 10 - 12 weeks, Re ason: At-Risk Foot care, sooner if problems develop. Progress Notes * Crystal GARCIA SDOB:1960 (64 yo F)Acc No.[id number]:09/12/2024 Patient: Crystal HUANG S Provider: Sophia SIERRA :1960 A ge:64 Y S ex:Female Date:09/12/2024 Address:[address] [place], [place] [id number] Subjective: * Chief Complaints: * 1 . *General care. * ROS: G eneral / Constitutional: Patient denies c hills, fever, weight loss. ? M usculoskeletal: Patient denies w eakness, broken foot bone. ? S kin: Patient complains of c alluses and corns, nail changes.? N eurologic: Patient denies b alance difficulty, confusion, difficulty speaking, dizziness. * Medical History: Objective: * Vitals: * Examination: P hysical Examination: General appearance: A lert, pleasant, well-nourished and in no acute distress. D ermatologic: Skin findings: S kin is thin, atrophic and lacking pedal hair. Hypertrophic / hyperkeratotic lesion: p lantar aspect left heel, distal 1st digits bilateral. Nail pathology: N ails 1, 2, 3, [...] - L85.1 3 . A therosclerosis of [place] arteries of extremities with intermittent claudication, bilateral legs - I70.213 4 . P ain in right foot - M79.671 5 . P ain in left foot - M79.672 Plan: * Treatment: 2. A cquired keratosis [keratoderma] palmaris et plantaris Notes: A total of 2 corns or calluses, as described in the note above, were cut and pared utilizing a #15 blade 3. A therosclerosis of [place] arteries of extremities with intermittent claudication, bilateral legs Notes: Patient educated on risks and aggravating factors of PVD, including conservative treatment options such as a diet and exercise regimen to aid in slowing progression of vascular disease. Check and protect LE bilateral daily. Call if any changes or concerns. * Follow Up: 1 0 - 12 weeks (Reason: At-Risk Foot care, sooner if problems develop.) * Billing Information: * Visit Code: * Procedure Codes: * Electronic signature of NEIL SIERRA DPM on 12/23/2024 at 01:05 PM CDT Sign off status: Pending * Provider: Sophia SIERRA Date: 0 09/12/2024 Generated for Dung fall/Kajal/Teodoro on: 01:05 PM CDT History and Physical Notes * Examination Category Sub-Category Detail Notes Category Not es Dermatologic Skin findings: Skin is thin, at rophic and lacking pedal hair Nail pathology: Nails 1, 2, 3, 4, an d 5 bilateral are elongated, thick, discolored, and dystrophic with subungual debris. They are painful to palpation Hypertrophic / hyperkeratotic lesion: pl adrienne aspect left heel, distal 1st digits bilateral Neurologic Gross sensation Grossly intact t o [...]
--- NOTE | ~2024-12-23 | XR_ITS ---
EXAMINATION: XR elbow RT min 3V, 12/23/2024 12:00 CDT HISTORY: W19.XXXA - Unspecified fall, initial encounter COMPARISON: No comparisons available. Findings: No acute fracture or malalignment. No significant degenerative changes. Soft tissues unremarkable. Impression: No acute fracture or malalignment. Reviewed, dictated and finalized at location P. Impression: No acute fracture or malalignment.
--- NOTE | ~2024-12-23 | XR_ITS ---
EXAMINATION: XR shoulder RT 1V, 12/23/2024 12:00 CDT HISTORY: W19.XXXA - Unspecified fall, initial encounter COMPARISON: No comparisons available. Findings: No acute fracture or malalignment. No significant degenerative changes. Soft tissues unremarkable. Impression: No acute fracture or malalignment. Reviewed, dictated and finalized at location P. Impression: No acute fracture or malalignment.
--- OUTSIDE RECORDS SUMMARY | 2024-12-23 13:04 | XMS_ITS | Patient Health Record ---
Author Organization [facility] Address [address] [place], [place] [address] Care Team Providers Care Lead Developer Name Role Phone SIERRAKATIUSKA FELIX Unavailable [phone] Zaki Dawn Unavailable Unavailable SNSOCORRO PURCELL Unavailable [phone] Allergies Allergen (clinical drug ingredient) Drug/Non Drug Allergy documented on EMR Reaction Allergy Type Onset Date Status aspirin Aspirin Unknown Drug Allergy Active Reason For Referral No Information Encounters Encounter Location Date Provider Diagnosis [address] [id number] 04/18/2024 SOCORRO SNOOK Acquired keratosis [keratoderma] palmaris et plantaris L85.1 ; Atherosclerosis of [place] arteries of extremities with intermittent claudication, bilateral legs I70.213 ; Pain in left foot M79.672 and Other eccrine sweat disorders 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.[address] [id number] 07/11/2024 SOCORRO SNOOK Tinea unguium B35.1 ; Acquired keratosis [keratoderma] palmaris et plantaris L85.1 ; Atherosclerosis of [place] arteries of extremities with intermittent claudication, bilateral legs I70.213 ; Pain in right foot M79.671 and Pain in left foot M79.672 Assessments Encounter Date Diagnosis (ICD Code) Assessment Notes Treatment Notes Treatment Clinical Notes Section Notes 04/18/2024 Atherosclerosis of [place] arteries of extremities with intermittent claudication, bilateral legs (ICD-10 - I70.213) 04/18/2024 Acquired keratosis [keratoderma] palmaris et plantaris (ICD-10 - L85.1) A total of 3 corns or calluses to the left heel, as described in the note above, were cut and pared utilizing a #15 blade. Emollient: Recommend that the patient use an emollient such as [id number] Eucerin cream, Vanicream, or other lotion to the affected area. 07/11/2024 Tinea unguium (ICD-10 - B35.1) Nails [...] utilizing a #15 blade 07/11/2024 Atherosclerosis of [place] arteries of extremities with intermittent claudication, bilateral [...] this area with padding, inserts, or orthotics. 07/11/2024 Pain in right foot (ICD-10 - M79.671) 07/11/2024 Pain in left foot (ICD-10 - M79.672) 04/18/2024 Other Plan Of Treatment No Information Insurance Providers Payer Name Payer Address Payer Phone Subscriber Number Group Number Insured Name Patient Relationship to Insured Coverage Start Date Coverage End Date [facility] [address] [address] [place], [place] [id number] Crystal Garcia Self - patient is the insured Medical (General) History Medical History History ICD Code Bladder infections
--- OUTSIDE RECORDS SUMMARY | 2024-12-23 13:04 | XMS_ITS | Clinical Summary ---
Author Organization [facility] Address [address] [place] [address] Phone Care Team Providers Care Performance Makeup Artist Name Role Phone Zaki Dawn MD Primary Care Provider [phone] Alphonso Damon APRN, BATTERY ASSEMBLER Unavailable [phone] Fede Murray MD Unavailable Allergies Active Allergy [...] Description 06/10/2025 2:00 PM CDT Office Visit [facility] [address] [place] [address] Alphonso Damon, STEEL ERECTOR APPRENTICE, BATTERY ASSEMBLER [address] [place] [address] Health Maintenance Due Date Last Done Comments DEXA Bone Density 1960 Hepatitis C Virus (HCV) Screening 1960 Mammogram 1960 TdaP Immunization 1960 Pneumococcal Immunization (5 0+ years) (1 of 2 - PCV) 1977 Cologuard 06/30/2003 Colonoscopy 06/30/2003 Colorectal Cancer Screening 06/30/2003 Immunochemical Fecal Occult Blood 06/30/2003 Zoster Immunization (1 of 2) 2008 Medicare Initial AWV [id number] 03/13/2024 Influenza Immunization (#1) 2024 SARS-COV-2 Immunization (3 - 2024- season) 2024 11/18/2020, 10/23/2020 Respiratory Syncytial Virus (RSV) Immunization (Adult) (1 [...] MEDICAID [place] MEDICARE C UNITEDHEALTH[employer] Care Teams Performance Makeup Artist Relationship Specialty Start Date End Date Zaki Dawn MD [address] [place] [id number] PCP - General Family Medicine 10/16/23 Alphonso Damon, STEEL ERECTOR APPRENTICE, BATTERY ASSEMBLER [address] [place] [address] Nurse Practitioner Advanced Practice Nurse 11/20/23 Fede Murray MD [address] [phone] Consulting Physician Urology 03/29/24
== END 2024-12-23 11:48 | disposition home or self-care (01) ==
LOC: CHSIMG 11:48
PROVIDERS: PCP Family Medicine; Visit Provider Family Medicine
DX: S49.91XA Unspecified injury of right shoulder and upper arm, initial encounter (principal)
CPT/HCPCS: 73020; 73080

== ENCOUNTER 2025-02-05 10:15 | Outpatient (CLI) | payer MEDICARE, MEDICAID, SELFPAY ==
--- NOTE | ~2025-02-05 | XR_ITS ---
XR shoulder RT min 2V 02/05/2025 10:39 Indication: Right shoulder pain Procedure: 5 views right shoulder Comparison: No prior studies for comparison. Findings: Osteopenia. No fracture, subluxation or dislocation. No soft tissue abnormality. No foreign bodies. Impression: 1: No acute bone or joint abnormality. 2: Osteopenia. Reviewed, dictated and finalized at location O. ICAL SCIENCES PROFESSOR Impression: 1: No acute bone or joint abnormality. 2: Osteopenia.
--- OUTSIDE RECORDS SUMMARY | 2025-02-05 10:58 | XMS_ITS | Clinical Summary ---
Author Organization [facility] Address [address] [place] [address] Phone Care Team Providers Care Cloth Shrinking Supervisor Name Role Phone Zaki Dawn MD Primary Care Provider [phone] Alphonso Damon APRN, [place] FLOOR INSTALLATION HELPER Unavailable [phone] Fede Murray MD Unavailable Allergies Active Allergy [...] Description 06/10/2025 2:00 PM CDT Office Visit [facility] [address] [place] [address] Alphonso Damon, SURGERY AID, [place] FLOOR INSTALLATION HELPER [address] [place] [address] Health Maintenance Due Date Last Done Comments [...] MEDICAID [place] MEDICARE C UNITED[employer] Care Teams Cloth Shrinking Supervisor Relationship Specialty Start Date End Date Zaki Dawn MD [address] [place] [id number] PCP - General Family Medicine 10/16/23 Alphonso Damon, SURGERY AID, [place] FLOOR INSTALLATION HELPER [address] [place] [address] Nurse Practitioner Advanced Practice Nurse 11/20/23 Fede Murray MD [address] [address] Consulting Physician Urology 03/29/24
== END 2025-02-05 10:16 | disposition home or self-care (01) ==
PROVIDERS: PCP Family Medicine; Visit Provider Family Medicine
DX: S49.91XA Unspecified injury of right shoulder and upper arm, initial encounter (principal); M85.811 Other specified disorders of bone density and structure, right shoulder
CPT/HCPCS: 73030